=== PATIENT | female | born 1975 | race Two or more races ===

== ENCOUNTER 2018-08-30 11:40 | Day surgery (SDC) | payer OTHER ==
[2018-08-30] MEDS ORDERED: LIDOCAINE 4% SOLUTION 50 ML BTL (13:04)
[2018-08-30] MEDS ORDERED: FENTAnyl 50 MCG/ML VIAL (13:32)
[2018-08-30] MEDS ORDERED: MIDAZOLAM 1 MG/ML 2 ML INJ ×2 (13:32)
== END 2018-08-30 15:16 | disposition home or self-care (01) ==
LOC: GIL 11:40
DX: R12 Heartburn (principal); R10.10 Upper abdominal pain, unspecified
CPT/HCPCS: 43239; 84703; 88305; 88312